=== PATIENT | female | born 1940 | race Caucasian/White ===

== ENCOUNTER 2022-04-20 10:57 | Emergency (ER) | payer OTHER ==
[2022-04-20 12:22] LABS: HEMOGLOBIN 15.1 gm/dl (12.3-15.3); RED BLOOD COUNT 4.73 M/UL (4.00-5.10); WHITE BLOOD COUNT 7.5 K/UL (4.5-11.0)
[2022-04-20 13:02] LABS: BUN/CREATININE RATIO 20 (0-10)
[2022-04-20] MEDS ORDERED: HYDROCODON-ACE1 EAC4 PO (14:01)
== END 2022-04-20 14:30 | disposition home or self-care (01) ==
LOC: ER1 10:57
PROVIDERS: Physician Assistant
DX: S42.211A Unspecified displaced fracture of surgical neck of right humerus, initial encounter for closed fracture (principal); S42.291A Other displaced fracture of upper end of right humerus, initial encounter for closed fracture; R60.0 Localized edema; Z90.710 Acquired absence of both cervix and uterus; Z88.8 Allergy status to other drugs, medicaments and biological substances; Z88.0 Allergy status to penicillin; Z79.899 Other long term (current) drug therapy; W19.XXXA Unspecified fall, initial encounter
CPT/HCPCS: 71045; 73030; 73200; 80053; 82550; 82553; 83880; 84484; 85025; 93005; 96374; 99285; J2405

== ENCOUNTER 2022-04-28 08:06 | Inpatient (IN) | payer MEDICARE, OTHER ==
[~2022-04-28] VITALS: Ht 167.6 cm; Wt 103.9 kg
[~2022-04-28 08:06] MED LIST: BUMETANIDE0.5 MG PO; DOXEPIN HCL10 MG PO; HYDROCODON-ACE1 EAC4 PO; KLONOPIN0.5 MG PO; MELOXICAM15 MG PO; POTASSIUM OTC PO; ROXICODONE5 MG PO
[2022-04-28 08:40] LABS: HEMOGLOBIN 12.6 gm/dl (12.3-15.3); RED BLOOD COUNT 3.96 M/UL (4.00-5.10); WHITE BLOOD COUNT 8.6 K/UL (4.5-11.0)
[2022-04-28 08:59] LABS: BUN/CREATININE RATIO 19 (0-10)
[2022-04-28] MEDS ORDERED: CELEBREX200 MG PO (17:16)
[2022-04-28] MEDS ORDERED: ONDANSETRON HCL4 MG PO (17:17)
[2022-04-28] MEDS ORDERED: GABAPENTIN300 MG PO (17:17)
[2022-04-28] MEDS ORDERED: MUPIROCIN22 GM TOP (17:18)
[2022-04-29 04:51] LABS: HEMOGLOBIN 11.3 gm/dl (12.3-15.3); RED BLOOD COUNT 3.63 M/UL (4.00-5.10)
[2022-04-29 04:56] LABS: BUN/CREATININE RATIO 22 (0-10)
[2022-04-29 05:08] LABS: WHITE BLOOD COUNT 11.4 K/UL (4.5-11.0)
[2022-04-30 03:46] LABS: HEMOGLOBIN 10.4 gm/dl (12.3-15.3); RED BLOOD COUNT 3.31 M/UL (4.00-5.10); WHITE BLOOD COUNT 10.8 K/UL (4.5-11.0)
--- NOTE | 2022-04-30 11:56 | NUR ---
1150 Patient having difficulty maintaining 02 Sats above 90%. 02 at 5L/m per NC. Denies being short of breath. Lung sounds diminished. No cough noted. Dr Boyce called, new orders obtained for ABG's, chest xray and DuoNebs Q6hrs prn.
[2022-05-01 02:36] LABS: HEMOGLOBIN 10.4 gm/dl (12.3-15.3); RED BLOOD COUNT 3.35 M/UL (4.00-5.10); WHITE BLOOD COUNT 8.8 K/UL (4.5-11.0)
[2022-05-01 03:04] LABS: BUN/CREATININE RATIO 31 (0-10)
[2022-05-03 06:36] LABS: HEMOGLOBIN 11.1 gm/dl (12.3-15.3); RED BLOOD COUNT 3.54 M/UL (4.00-5.10)
[2022-05-03 14:16] LABS: BUN/CREATININE RATIO 30 (0-10)
--- NOTE | 2022-05-03 15:40 | NUR ---
CALLED AND GAVE REPORT TO DANIKA AT [facility] [place]
== END 2022-05-03 15:05 | DRG 483 ==
LOC: M/S 08:06 → OR 08:06 → M/S 16:17 → OR 17:15 → M/S 04-30 08:30
PROVIDERS: Internal Medicine; ADMIT Orthopaedic Surgery
PROC: 0RRJ00Z Replacement of Right Shoulder Joint with Reverse Ball and Socket Synthetic Substitute, Open Approach (ICD-10-PCS; principal; 2022-04-28 17:45)
DX: S42.201A Unspecified fracture of upper end of right humerus, initial encounter for closed fracture (principal); J95.821 Acute postprocedural respiratory failure; J98.11 Atelectasis; Z20.822 Contact with and (suspected) exposure to COVID-19; M19.90 Unspecified osteoarthritis, unspecified site; F41.9 Anxiety disorder, unspecified; W18.30XA Fall on same level, unspecified, initial encounter; G47.00 Insomnia, unspecified; R40.0 Somnolence; E87.6 Hypokalemia; K21.9 Gastro-esophageal reflux disease without esophagitis; Z88.1 Allergy status to other antibiotic agents; Z88.8 Allergy status to other drugs, medicaments and biological substances; Z90.710 Acquired absence of both cervix and uterus; Y92.009 Unspecified place in unspecified non-institutional (private) residence as the place of occurrence of the external cause; Z82.49 Family history of ischemic heart disease and other diseases of the circulatory system
CPT/HCPCS: 36415; 36600; 71045; 73020; 80048; 82803; 83735; 84443; 85025; 85027; 86850; 86900; 86901; 94664; 94760; 97116; 97116-GP-CQ; 97162; 97166; 97530; 97530-GP-CQ; 97535; C1713; C1776; J0171; J0690; J1100; J2270; J2405; J2704; J2710; J2795; J3010

== ENCOUNTER 2022-05-20 22:34 | Inpatient (IN) | payer MEDICARE, OTHER ==
[~2022-05-20] VITALS: Ht 167.6 cm; Wt 105.7 kg
[~2022-05-20 22:34] MED LIST changes: +CELEBREX200 MG PO; +GABAPENTIN300 MG PO; +MUPIROCIN22 GM TOP; +ONDANSETRON HCL4 MG PO
[2022-05-20 23:13] LABS: HEMOGLOBIN 12.4 gm/dl (12.3-15.3); RED BLOOD COUNT 4.02 M/UL (4.00-5.10); WHITE BLOOD COUNT 19.9 K/UL (4.5-11.0)
[2022-05-20 23:35] LABS: BUN/CREATININE RATIO 11 (0-10)
[2022-05-21 11:08] LABS: ADENOVIRUS F 40/41 Not Detected (Negative); ASTROVIRUS Not Detected (Negative); CAMPYLOBACTER Not Detected (Negative); CRYPTOSPORIDIUM Not Detected (Negative); E.COLI 0157 Not Detected (Negative); ENTAMOEBA HISTOLYTICA Not Detected (Negative); ENTEROAGGREGATIVE E.COLI (EAEC Not Detected (Negative); ENTEROPATHOGENIC E.COLI (EPEC) Not Detected (Negative); ENTEROTOXIGENIC E.COLI (ETEC) Not Detected (Negative); GIARDIA LAMBLIA Not Detected (Negative); NOROVIRUS GI/GII Not Detected (Negative); PLESIOMONAS SHIGELLOIDES Not Detected (Negative); ROTOVIRUS A Not Detected (Negative); SALMONELLA Not Detected (Negative); SAPOVIRUS Not Detected (Negative); SHIG/ENTEROINVAS.ECOLI (EIEC) Not Detected (Negative); SHIGA-LIK TOX.PRO.E.COLI (STEC Not Detected (Negative); VIBRIO Not Detected (Negative); VIBRIO CHOLERAE Not Detected (Negative); YERSINIA ENTEROCOLITICA Not Detected (Negative)
[2022-05-21] MEDS ORDERED: BUMETANIDE0.5 MG PO (11:51)
[2022-05-22 05:55] LABS: HEMOGLOBIN 11.6 gm/dl (12.3-15.3); RED BLOOD COUNT 3.78 M/UL (4.00-5.10); WHITE BLOOD COUNT 17.4 K/UL (4.5-11.0)
[2022-05-22 06:11] LABS: BUN/CREATININE RATIO 17 (0-10)
[2022-05-23 05:47] LABS: HEMOGLOBIN 11.8 gm/dl (12.3-15.3); RED BLOOD COUNT 3.82 M/UL (4.00-5.10); WHITE BLOOD COUNT 9.5 K/UL (4.5-11.0)
[2022-05-23 06:03] LABS: BUN/CREATININE RATIO 19 (0-10)
[2022-05-24 07:10] LABS: BUN/CREATININE RATIO 15 (0-10)
[2022-05-25 06:21] LABS: HEMOGLOBIN 12.1 gm/dl (12.3-15.3); RED BLOOD COUNT 3.99 M/UL (4.00-5.10); WHITE BLOOD COUNT 7.3 K/UL (4.5-11.0)
[2022-05-25 07:00] LABS: BUN/CREATININE RATIO 13 (0-10)
[2022-05-25] MEDS ORDERED: FLAGYL 250 MG250 MG PO (09:27)
[2022-05-25] MEDS ORDERED: VANCOMYCIN HCL250 MG PO (09:27)
== END 2022-05-25 15:29 | disposition home or self-care (01) | DRG 371 ==
LOC: ER1 22:34 → CDU 05-21 04:09 → MED SURG 4 05-21 04:09
PROVIDERS: Internal Medicine; Nurse Practitioner; ADMIT Internal Medicine
DX: A04.72 Enterocolitis due to Clostridium difficile, not specified as recurrent (principal); J96.21 Acute and chronic respiratory failure with hypoxia; K51.00 Ulcerative (chronic) pancolitis without complications; M19.91 Primary osteoarthritis, unspecified site; I87.2 Venous insufficiency (chronic) (peripheral); Z96.611 Presence of right artificial shoulder joint; Z20.822 Contact with and (suspected) exposure to COVID-19; E66.9 Obesity, unspecified; F41.9 Anxiety disorder, unspecified; I10 Essential (primary) hypertension; E78.5 Hyperlipidemia, unspecified; K21.9 Gastro-esophageal reflux disease without esophagitis; E87.6 Hypokalemia; Z98.890 Other specified postprocedural states; Z90.710 Acquired absence of both cervix and uterus; Z88.0 Allergy status to penicillin; Z88.8 Allergy status to other drugs, medicaments and biological substances; Z80.0 Family history of malignant neoplasm of digestive organs; I25.2 Old myocardial infarction; Z86.73 Personal history of transient ischemic attack (TIA), and cerebral infarction without residual deficits
CPT/HCPCS: 0240U; 36415; 71045; 80048; 80053; 80076; 81001; 82550; 82553; 83605; 83690; 83735; 84100; 84132; 84484; 85025; 85027; 86140; 87086; 87324; 87449; 87507; 93005; 96374; 96375; 97116-GP-CQ; 97161; 97165; 97535; 99285; J0696; J1650; J2270; J2405; J3480; Q9967

== ENCOUNTER 2022-06-30 06:27 | Inpatient (IN) | payer MEDICARE, OTHER ==
[~2022-06-30] VITALS: Ht 167.6 cm; Wt 103.9 kg
[~2022-06-30 06:27] MED LIST changes: +FLAGYL 250 MG250 MG PO; +VANCOMYCIN HCL250 MG PO
[2022-06-30 07:19] LABS: HEMOGLOBIN 13.6 gm/dl (12.3-15.3); RED BLOOD COUNT 4.38 M/UL (4.00-5.10); WHITE BLOOD COUNT 17.4 K/UL (4.5-11.0)
[2022-06-30 08:05] LABS: ADENOVIRUS F 40/41 Not Detected (Negative); ASTROVIRUS Not Detected (Negative); CAMPYLOBACTER Not Detected (Negative); CRYPTOSPORIDIUM Not Detected (Negative); E.COLI 0157 Not Detected (Negative); ENTAMOEBA HISTOLYTICA Not Detected (Negative); ENTEROAGGREGATIVE E.COLI (EAEC Not Detected (Negative); ENTEROPATHOGENIC E.COLI (EPEC) Not Detected (Negative); ENTEROTOXIGENIC E.COLI (ETEC) Not Detected (Negative); GIARDIA LAMBLIA Not Detected (Negative); NOROVIRUS GI/GII Not Detected (Negative); PLESIOMONAS SHIGELLOIDES Not Detected (Negative); ROTOVIRUS A Not Detected (Negative); SALMONELLA Not Detected (Negative); SAPOVIRUS Not Detected (Negative); SHIG/ENTEROINVAS.ECOLI (EIEC) Not Detected (Negative); SHIGA-LIK TOX.PRO.E.COLI (STEC Not Detected (Negative); VIBRIO Not Detected (Negative); VIBRIO CHOLERAE Not Detected (Negative); YERSINIA ENTEROCOLITICA Not Detected (Negative)
[2022-06-30 08:37] LABS: BUN/CREATININE RATIO 13 (0-10)
[2022-06-30 11:08] LABS: CLOSTRIDIUM DIFFICILE TOX A/B DETECTED (Negative)
[2022-06-30] MEDS ORDERED: KLONOPIN TAB 00.5 MG PO (13:54)
[2022-06-30] MEDS ORDERED: CULTURELLE CAP1 EACH PO (14:30)
[2022-06-30] MEDS ORDERED: PREVACID 24HR15 MG PO (14:31)
[2022-06-30] MEDS ORDERED: ASPIRIN EC81 MG PO (14:32)
[2022-07-01 05:39] LABS: HEMOGLOBIN 12.4 gm/dl (12.3-15.3); RED BLOOD COUNT 4.06 M/UL (4.00-5.10)
[2022-07-01 06:00] LABS: BUN/CREATININE RATIO 18 (0-10)
[2022-07-01 06:03] LABS: WHITE BLOOD COUNT 10.2 K/UL (4.5-11.0)
[2022-07-02 05:52] LABS: HEMOGLOBIN 11.9 gm/dl (12.3-15.3); RED BLOOD COUNT 3.93 M/UL (4.00-5.10); WHITE BLOOD COUNT 7.7 K/UL (4.5-11.0)
[2022-07-02 06:16] LABS: BUN/CREATININE RATIO 17 (0-10)
[2022-07-03 05:52] LABS: RED BLOOD COUNT 3.93 M/UL (4.00-5.10)
[2022-07-03 06:11] LABS: BUN/CREATININE RATIO 16 (0-10)
[2022-07-04 06:31] LABS: HEMOGLOBIN 11.8 gm/dl (12.3-15.3); RED BLOOD COUNT 3.84 M/UL (4.00-5.10); WHITE BLOOD COUNT 7.6 K/UL (4.5-11.0)
[2022-07-04 06:52] LABS: BUN/CREATININE RATIO 14 (0-10)
[2022-07-05 06:02] LABS: HEMOGLOBIN 12.1 gm/dl (12.3-15.3); RED BLOOD COUNT 3.96 M/UL (4.00-5.10); WHITE BLOOD COUNT 6.2 K/UL (4.5-11.0)
[2022-07-05 06:32] LABS: BUN/CREATININE RATIO 10 (0-10)
[2022-07-06 18:30] LABS: HEMOGLOBIN 13.7 gm/dl (12.3-15.3)
[2022-07-06 18:36] LABS: RED BLOOD COUNT 4.37 M/UL (4.00-5.10); WHITE BLOOD COUNT 9.3 K/UL (4.5-11.0)
[2022-07-06 18:51] LABS: BUN/CREATININE RATIO 15 (0-10)
[2022-07-08] MEDS ORDERED: KLONOPIN TAB 00.5 MG PO (08:42)
[2022-07-08] MEDS ORDERED: NEOSPORIN OINT15 GM TOP (08:42)
[2022-07-08] MEDS ORDERED: VANCOMYCIN HCL250 MG PO (08:42)
--- NOTE | 2022-07-08 10:25 | NUR ---
called report to teresa madrigal spoke to
--- NOTE | 2022-07-08 13:22 | NUR ---
APPLIED ONITMENT TO LEFT LEG. REDNESS IMPROVING.
== END 2022-07-08 15:43 | DRG 373 ==
LOC: ER1 06:27 → CDU 11:30 → MED SURG 4 11:30
PROVIDERS: Internal Medicine; Physician Assistant; ADMIT Internal Medicine
PROC: B24BZZZ Ultrasonography of Heart with Aorta (ICD-10-PCS; principal; 2022-06-30)
DX: A04.71 Enterocolitis due to Clostridium difficile, recurrent (principal); R53.81 Other malaise; E87.6 Hypokalemia; I87.8 Other specified disorders of veins; M19.91 Primary osteoarthritis, unspecified site; E66.9 Obesity, unspecified; Z96.611 Presence of right artificial shoulder joint; I50.9 Heart failure, unspecified; F41.9 Anxiety disorder, unspecified; I34.0 Nonrheumatic mitral (valve) insufficiency; I87.2 Venous insufficiency (chronic) (peripheral); Z79.01 Long term (current) use of anticoagulants; Z79.82 Long term (current) use of aspirin; Z90.710 Acquired absence of both cervix and uterus; Z88.1 Allergy status to other antibiotic agents; Z88.8 Allergy status to other drugs, medicaments and biological substances; Z80.9 Family history of malignant neoplasm, unspecified; Z91.81 History of falling; Z68.37 Body mass index [BMI] 37.0-37.9, adult
CPT/HCPCS: ECHO; 36415; 70450; 71045; 80048; 80053; 81001; 82550; 82553; 83735; 83880; 84100; 84132; 84484; 85025; 85027; 87507; 93005; 93306; 97110; 97110-GP-CQ; 97116-GP-CQ; 97161; 97166; 97530; 97530-GP-CQ; 99285; J1650; J7030